=== PATIENT | female | born 1955 | race Caucasian/White ===

== ENCOUNTER 2023-06-29 17:11 | Emergency (ER) | payer MEDICARE, OTHER ==
[2023-06-29] MEDS: Lidocaine 1% 5 ML VIAL INJECT STA (18:05)
[2023-06-29] MEDS: Lidocaine 1% 5 ML VIAL INJECT ONE (18:13)
[2023-06-29 19:33] VITALS: BP 128/95; PULSE 88
== END 2023-06-29 19:33 | disposition home or self-care (01) ==
LOC: MW.ED 17:11
DX: S61.212A Laceration without foreign body of right middle finger without damage to nail, initial encounter (principal); S61.210A Laceration without foreign body of right index finger without damage to nail, initial encounter; F17.210 Nicotine dependence, cigarettes, uncomplicated; Z90.49 Acquired absence of other specified parts of digestive tract; Z90.710 Acquired absence of both cervix and uterus; W31.2XXA Contact with powered woodworking and forming machines, initial encounter
CPT/HCPCS: 12001; 73130-26-RT; 73130-RT; 99283; J3490